=== PATIENT | female | born 1945 | race Caucasian/White ===

== ENCOUNTER 2021-03-05 12:14 | Observation (INO) | payer MEDICARE, SELFPAY ==
[2021-03-05] VITALS (14 sets, daily range): BP systolic 117–169; BP diastolic 56–86; PULSE 53–774; RESP 13–24; TEMP 36.6–37.2; O2SAT 92–98; BMI 29.4
--- NOTE | 2021-03-05 12:37 | EKG12_ITS ---
Test Reason : SYNCOPE Blood Pressure : / mmHG Vent. Rate : 061 BPM Atrial Rate : 061 BPM P-R Int : 150 ms QRS Dur : 142 ms QT Int : 426 ms P-R-T Axes : 046 109 001 degrees QTc Int : 428 ms Normal sinus rhythm Right bundle branch block Abnormal ECG Confirmed by GERI FOOTE, CHERIE ([id number]), assignment desk editor ELSY TIDWELL ([id number]) on 03/09/2021 10:27:51 AM Referred By: CLAU Confirmed By:CHERIE NEVAREZ MD
--- NOTE | 2021-03-05 12:40 | RAD_ITS ---
STUDY: X-RAY CHEST REASON FOR EXAM: Female, 75 years old. COVID . Syncope. Increased weakness and diarrhea. TECHNIQUE: Single AP portable view of the chest. COMPARISON: None. FINDINGS: EKG electrodes are seen. Mild degree of increased markings are seen in the medial aspect of the right lung base. There is no demonstrated pleural abnormality. There is borderline cardiomegaly. Normal mediastinum and mraion. Normal visualized pulmonary arteries. There is atherosclerotic tortuosity of the aortic arch and descending thoracic aorta. Normal visualized thoracic spine. Normal visualized ribs, clavicles, and shoulders. There is no demonstrated abnormality of the visualized soft tissue structures of the upper abdomen. RAD/Chest 1 View (Portable) IMPRESSION: Mild degree of increased markings at the right lung base medially. Electronically Signed: Boyd Aceves MD at 13:25 EDT , Service support ,
[2021-03-05 12:48] LABS: Absolute Lymphocyte Count 1.39 X10^3/uL (0.83-4.51); Absolute Neutrophil Count 4.1 X10^3/uL (2.0-7.7); Basophil# 0.02 X10^3/uL; Basophil% 0.3 % (0-1); Hematocrit 38.3 % (37-47); Hemoglobin 13.2 g/dL (12.0-15.0); Lymphocyte # 1.39 X10^3/ul (0.83-4.51); Lymphocyte % 21.6 % (19-41); Mean Corp Hgb Conc 34.5 g/dL (32-36); Mean Corpuscular Hgb 29.7 pg (27.0-32.0); Mean Corpuscular Volume 86.3 fL (81-99); Mean Platelet Vol. 9.9 fl (6.2-12.0); Monocyte# 0.93 X10^3/uL; Monocyte% 14.4 % (0-10); NRBC Flagged by Analyzer 0 % (0-5); Neutrophil # 4.07 X10^3/uL (2.7-7.7); Neutrophil % 63.2 % (47-70); Platelet Count 202 K/mm3 (150-450); RBC Distribution Width CV 13.3 % (11.6-14.6); RBC Distribution Width SD 41.9 fl (35.1-43.9); Red Blood Count 4.44 M/mm3 (4.2-5.4); White Blood Count 6.4 K/mm3 (4.4-11.0)
[2021-03-05 13:02] LABS: ALB/GLOB Ratio 0.8 RATIO (0.9-2.4); AST(SGOT) 37 U/L (15-37); Alanine Aminotransfer ALT/SGPT 34 U/L (13-56); Albumin, Serum 3.7 g/dL (3.2-5.0); Alkaline Phosphatase 72 U/L (45-117); Anion Gap 10 (5-15); BUN 17 mg/dL (7-18); Calcium,Total 8.5 mg/dL (8.5-10.1); Chloride 91 mmol/L (98-107); EST Glomerular Filtration Rate 57 mL/min (>60); Est Glom Filt Rate - Afr Amer 69 mL/min (>60); Estimated Creatinine Clearance 41.97 ml/min; Globulin 4.4 g/dL (2.2-4.2); Glucose 123 mg/dL (74-106); Potassium 3.5 mmol/L (3.5-5.1); Protein, Total 8.1 g/dL (6.4-8.2); Sodium Level 129 mmol/L (136-145); Troponin-I HS 10 pg/mL (3.0-54.0)
--- NOTE | 2021-03-05 14:06 | EDS_ITS ---
HPI History of Present Illness Chief Complaint: Syncope Informant: patient Narrative Narrative: Patient is a 75-year-old female who presents to the emergency department after being tested positive for Covid. This is day 10 of symptoms. She states that she has been having nausea intermittently as well as diarrhea daily. She denies any significant chest pain or shortness of breath. She has been but monitoring her home oxygen. She has had a mild intermittent cough. She denies any fevers or chills. Yesterday she had an episode where she passed out. When walking into the emergency department she again passed out. She denies having episodes of this before in the past. She denies any known history of heart or lung problems. She denies a smoking history. PFSH PFS Home Medications NK 03/05/21 [History Last Taken Unknown] Allergy/AdvReac Type Severity Reaction Status Date / Time No Known Allergies Allergy Verified 03/05/21 12:17 Social History Smoking Status: Never smoker ROS ROS ED Constitutional Constitutional ED: Denies chills or fever(s) Eyes Eyes: Denies change in vision ENT ENT ED: Denies epistaxis or rhinorrhea Cardiovascular Cardiovascular: Denies chest pain or palpitations Respiratory/Chest Respiratory/Chest: Denies dyspnea or dyspnea on exertion Gastrointestinal Gastrointestinal: Reports diarrhea, nausea and vomiting; Denies abdominal pain Musculoskeletal Musculoskeletal: Denies back pain or neck pain Integumentary Denies rash Neurologic Neurologic: Denies headache(s) or weakness EXAM Physical Exam Const Vital Signs: 03/05/21 12:15 03/05/21 12:19 03/05/21 13:24 Temperature 97.8 F 97.8 F 99 F Temperature Source Temporal Temporal Oral Pulse Rate 53 L 53 L 68 Pulse Rate [Lying] 62 Pulse Rate [Sitting] 72 Pulse Rate [Standing] 73 Respiratory Rate 21 H 21 H 17 Respiratory Effort Short of Breath Blood Pressure 154/63 H 154/63 H 117/59 L Blood Pressure [Lying] 121/63 H Blood Pressure [Sitting] 131/56 H Blood Pressure [Standing] 117/59 L Blood Pressure Mean 93 93 78 Blood Pressure Mean [Lying] 82 Blood Pressure Mean [Sitting] 81 Blood Pressure Mean [Standing] 78 Pulse Ox 93 93 93 Oxygen Delivery Method Room Air Room Air Room Air 03/05/21 14:00 03/05/21 15:13 Temperature Temperature Source Pulse Rate 69 78 Pulse Rate [Lying] Pulse Rate [Sitting] Pulse Rate [Standing] Respiratory Rate 20 H 20 H Respiratory Effort Blood Pressure 127/60 H 121/60 H Blood Pressure [Lying] Blood Pressure [Sitting] Blood Pressure [Standing] Blood Pressure Mean 82 80 Blood Pressure Mean [Lying] Blood Pressure Mean [Sitting] Blood Pressure Mean [Standing] Pulse Ox 93 94 Oxygen Delivery Method Room Air Room Air Positive well nourished and well developed General Appearance ED: well developed and NAD HEENT Reports normocephalic and head/scalp atraumatic Eyes PERRL and EOMs intact bilaterally Chest Wall inspection of chest normal Resp normal respiratory effort and clear to auscultation bilaterally Auscultation: Negative for rales, rhonchi or wheezes Cardio regular rate, regular rhythm and no murmurs GI normal to inspection, nondistended, normoactive bowel sounds and non-tender Palpation: soft; Negative for guarding or rebound tenderness present Back/Spine no CVA tenderness Extremity normal to inspection General Extremety ED: Negative for edema or tenderness General Extremity: Negative for edema Neuro Sensorium / Orientation: alert Motor Exam: strength 5/5 throughout Psych mental status grossly normal Skin no rashes or lesions noted MDM MDM MDM Narrative Medical decision making narrative: Patient presents to the ED for diarrhea, nausea. She has not been able to keep much fluids down and she is Covid positive. She had 2 episodes of syncope since yesterday. On arrival to the emergency department she is satting 93% on room air. In no respiratory distress. Will start a small bolus of IV fluids and check basic lab work. Patient's lab work showed a sodium of 129. Patient was feeling much better after fluids we attempted to ambulate the patient. She took a few steps out of bed and desaturated to 85%. She will be started on Decadron and we will admit to the hospital for further evaluation and management. She understands and is agreeable with this plan. Lab Data Labs: Laboratory Results - last 24 hr 03/05/21 03/05/21 12:20 12:20 WBC 6.4 RBC 4.44 Hgb 13.2 Hct 38.3 MCV 86.3 MCH 29.7 MCHC 34.5 RDW Std Deviation 41.9 RDW Coeff of Nic 13.3 Plt Count 202 MPV 9.9 Immature Gran % (Auto) 0.500 Neut % (Auto) 63.2 Lymph % (Auto) 21.6 [place] % (Auto) 14.4 H Eos % (Auto) 0.0 Baso % (Auto) 0.3 Absolute Neuts (auto) 4.1 Absolute Lymphs (auto) 1.39 Nucleated RBC % 0 Sodium 129 L Potassium 3.5 Chloride 91 L Carbon Dioxide 28.0 Anion Gap 10 BUN 17 Creatinine 1.00 Estim Creat Clear Calc 41.97 Est GFR (MDRD) Af Amer 69 Est GFR (MDRD) Non-Af 57 L BUN/Creatinine Ratio 17.0 Glucose 123 H Calcium 8.5 Total Bilirubin 0.60 AST 37 ALT 34 Alkaline Phosphatase 72 Troponin I High Sens 10 Total Protein 8.1 Albumin 3.7 Globulin 4.4 H Albumin/Globulin Ratio 0.8 L Radiography Diagnostic Testing: Radiology Impression Chest X-Ray 03/05/21 12:40 IMPRESSION: Mild degree of increased markings at the right lung base medially. Electronically Signed: Boyd Aceves MD at 13:25 EDT , Service support , EKG Initial EKG: Attestation: I personally reviewed and interpreted this EKG as follows: (Rate of 61 bpm and normal sinus rhythm. Prolonged QRS of 142 with right bundle branch block. Otherwise normal intervals with a normal axis. No significant ST elevations or depressions.) Discharge Plan Dx/Rx/DC Orders Clinical Impression: Pneumonia due to COVID-19 virus, Hypoxia, Syncope, Hyponatremia Disposition Disposition: Acute Care Hospital [facility]
[2021-03-05] MEDS: dexAMETHasone 10 MG/ML Vial 8 MG IV (15:21)
--- NOTE | 2021-03-05 17:45 | PCM.HP.STD ---
HPI - General General Date of Admission: 03/05/21 Date of Service: 03/05/21 Chief Complaint: Syncopal episode HPI Narrative JANEE MEDINA, is a 75 F who presents to the emergency room at [facility] with a chief complaint of having a syncopal episode at home yesterday, on the way into the ER today she had another syncopal episode. Patient tested positive for COVID-19 10 days ago, she has had loose stools and diarrhea as well as intermittent nausea. Patient denies any significant chest pain or shortness of breath. Work-up in the emergency room included a CBC that was unremarkable, patient's CHEM panel was remarkable for a sodium of 129, chloride of 91, and patient's chest x-ray showed a mild degree of increased markings at the right lung base medially. Patient's pulse ox on room air was 95%. Patient was given IV fluids and reevaluated, she was walked without oxygen and her pulse ox went down to 85% according to the emergency room physician. Patient will be placed in observation status for syncope and hyponatremia, I believe she is probably dehydrated and I will administer fluids and place her on Decadron due to her recent Covid diagnosis. She is not a candidate for remdesivir. [facility] Home Medications NK 03/05/21 [History Last Taken Unknown] Allergy/AdvReac Type Severity Reaction Status Date / Time No Known Allergies Allergy Verified 03/05/21 12:17 Social History Smoking Status: Never smoker ROS Constitutional Constitutional: Reports fatigue and malaise; Denies anorexia, change in weight, chills, fever(s), night sweats or weakness Eyes Eyes: Denies blurry vision, change in eye color, change in vision, discharge from eye(s) or eye pain ENT HEENT: Denies abnormal hearing, dysphagia, ear pain, headache(s) or hearing loss Cardiovascular Cardiovascular: Reports syncope; Denies chest pain, claudication, edema or palpitations Respiratory/Chest Respiratory/Chest: Reports cough; Denies dyspnea, hemoptysis, shortness of breath at rest or shortness of breath with exertion Gastrointestinal Gastrointestinal: Reports diarrhea and nausea; Denies abdominal pain, constipation, hematemesis, hematochezia, melena or vomiting Genitourinary Genitourinary: Denies dysuria, hematuria, urinary frequency, urinary hesitancy, urinary incontinence or urinary urgency Musculoskeletal Musculoskeletal: Denies back pain, joint pain, joint stiffness, joint swelling, myalgias or neck pain Neurologic Neurologic: Denies abnormal gait, abnormal speech, dizziness, focal weakness, headache(s), loss of vision, numbness, other visual disturbances, paresthesias, syncope or tingling Psychiatric Psychiatric: Denies anxiety, cognitive impairment, depression, irritability, mood swings or suicidal ideation Endocrine Endocrinology: Denies change in body appearance, cold intolerance, excessive sweating, heat intolerance, polydipsia or polyuria Hematologic/Lymphatic Hematologic/Lymphatic: Denies none, anemia, easy bleeding, easy bruising or lymphadenopathy Allergic/Immunologic Allergic/Immunologic: Denies rhinitis, urticaria, eczemia or asthma Vital Signs Vital Signs Vital Signs: 03/05/21 12:15 03/05/21 12:19 03/05/21 13:24 Temperature 97.8 F 97.8 F 99 F Temperature Source Temporal Temporal Oral Pulse Rate 53 L 53 L 68 Pulse Rate [Lying] 62 Pulse Rate [Sitting] 72 Pulse Rate [Standing] 73 Respiratory Rate 21 H 21 H 17 Respiratory Effort Short of Breath Blood Pressure 154/63 H 154/63 H 117/59 L Blood Pressure [Lying] 121/63 H Blood Pressure [Sitting] 131/56 H Blood Pressure [Standing] 117/59 L Blood Pressure Mean 93 93 78 Blood Pressure Mean [Lying] 82 Blood Pressure Mean [Sitting] 81 Blood Pressure Mean [Standing] 78 Pulse Ox 93 93 93 Oxygen Delivery Method Room Air Room Air Room Air 03/05/21 14:00 03/05/21 15:13 03/05/21 15:20 Temperature 98.5 F Temperature Source Oral Pulse Rate 69 78 71 Pulse Rate [Lying] Pulse Rate [Sitting] Pulse Rate [Standing] Respiratory Rate 20 H 20 H 21 H Respiratory Effort Blood Pressure 127/60 H 121/60 H 143/68 H Blood Pressure [Lying] Blood Pressure [Sitting] Blood Pressure [Standing] Blood Pressure Mean 82 80 93 Blood Pressure Mean [Lying] Blood Pressure Mean [Sitting] Blood Pressure Mean [Standing] Pulse Ox 93 94 97 Oxygen Delivery Method Room Air Room Air Room Air 03/05/21 15:22 03/05/21 15:28 03/05/21 16:26 Temperature 98.5 F 98.5 F Temperature Source Oral Oral Pulse Rate 72 774 H 71 Pulse Rate [Lying] Pulse Rate [Sitting] Pulse Rate [Standing] Respiratory Rate 24 H 13 16 Respiratory Effort Blood Pressure 143/68 H 143/86 H 135/65 H Blood Pressure [Lying] Blood Pressure [Sitting] Blood Pressure [Standing] Blood Pressure Mean 93 105 88 Blood Pressure Mean [Lying] Blood Pressure Mean [Sitting] Blood Pressure Mean [Standing] Pulse Ox 94 96 92 Oxygen Delivery Method Room Air Room Air Room Air 03/05/21 17:02 Temperature Temperature Source Pulse Rate Pulse Rate [Lying] Pulse Rate [Sitting] Pulse Rate [Standing] Respiratory Rate Respiratory Effort Blood Pressure 124/61 H Blood Pressure [Lying] Blood Pressure [Sitting] Blood Pressure [Standing] Blood Pressure Mean 82 Blood Pressure Mean [Lying] Blood Pressure Mean [Sitting] Blood Pressure Mean [Standing] Pulse Ox Oxygen Delivery Method Weight Weight: 77.7 kg Body Mass Index (BMI) 29.4 Physical Exam Const alert, oriented x3, no apparent distress and healthy appearing General Appearance: cooperative, well kempt and well developed Orientation / Consciousness: awake, oriented to person, oriented to place and oriented to time HEENT normocephalic, head/scalp atraumatic, hearing grossly normal bilaterally and moist oral mucous membranes Eyes PERRL, EOMs intact bilaterally and conjunctivae normal Neck nuchal rigidity, supple, no JVD, thyroid normal and no carotid bruits General: trachea midline Resp normal respiratory effort, no retractions, no use of accessory muscles and clear to auscultation bilaterally Auscultation: Negative for rales, rhonchi or wheezes Cardio regular rate, regular rhythm, S1 normal heart sound, S2 normal heart sound, no murmurs, no rub and no gallops GI normal to inspection, nondistended, normoactive bowel sounds, soft to palpation, non-tender and non-distended Extremity normal to inspection and no clubbing, cyanosis or edema Skin no rashes or lesions noted, no wounds, skin turgor normal and no jaundice General Skin Exam: no breakdown Neuro oriented x3, CN's II-XII intact bilaterally, no focal motor deficits and no sensory deficits noted Sensorium / Orientation: awake and alert Speech: speech normal Psych thought process normal and affect normal Results Lab / Micro Data Result Diagrams: 03/05/21 12:20 03/05/21 12:20 Labs: Laboratory Results - last 24 hr 03/05/21 12:20: WBC 6.4, RBC 4.44, Hgb 13.2, Hct 38.3, MCV 86.3, MCH 29.7, MCHC 34.5, RDW Std Deviation 41.9, RDW Coeff of Nic 13.3, Plt Count 202, MPV 9.9, Immature Gran % (Auto) 0.500, Neut % (Auto) 63.2, Lymph % (Auto) 21.6, [place] % (Auto) 14.4 H, Eos % (Auto) 0.0, Baso % (Auto) 0.3, Absolute Neuts (auto) 4.1, Absolute Lymphs (auto) 1.39, Nucleated RBC % 0 03/05/21 12:20: Sodium 129 L, Potassium 3.5, Chloride 91 L, Carbon Dioxide 28.0, Anion Gap 10, BUN 17, Creatinine 1.00, Estim Creat Clear Calc 41.97, Est GFR (MDRD) Af Amer 69, Est GFR (MDRD) Non-Af 57 L, BUN/Creatinine Ratio 17.0, Glucose 123 H, Calcium 8.5, Total Bilirubin 0.60, AST 37, ALT 34, Alkaline Phosphatase 72, Troponin I High Sens 10, Total Protein 8.1, Albumin 3.7, Globulin 4.4 H, Albumin/Globulin Ratio 0.8 L Radiology Impression Chest X-Ray 03/05/21 12:40 IMPRESSION: Mild degree of increased markings at the right lung base medially. Electronically Signed: Boyd Aceves MD at 13:25 EDT , Service support , Assessment & Plan Assessment/Plan (1) Syncope: PLAN: 1. Syncope-etiology unclear at this time, it may be that the patient is dehydrated, patient will be placed into observation status on PCU, she will be given IV fluids and monitored on telemetry. I do not believe the patient needs an echocardiogram. #2 [id number] will be placed on dexamethasone, she is not a candidate for remdesivir #3 hypoxia secondary to #2-patient is only hypoxic on activity, she will need to be checked tomorrow prior to discharge to assess for outpatient supplemental oxygen need. #4 hyponatremia-BMP will be repeated in the morning, patient will be placed on normal saline Charges/Coding Visit Charges OBSV E&M: 55890 Initial observation care L3
[2021-03-05] MEDS: 0.9% Normal Saline 1,000 ML 100 ML IV (17:48)
--- NOTE | 2021-03-05 18:15 | NURSING ---
Patients door closed, but not negative pressure
[2021-03-05] MEDS: Heparin Injection (Vial) 5,000 UNIT/ML VIAL 5000 UNIT SC (21:36)
--- NOTE | 2021-03-05 22:34 | PCS.PANDOC ---
PANDEMIC DOCUMENTATION INITIATED: Date: 03/05/2021 Time: 1255
[2021-03-06] VITALS (8 sets, daily range): BP systolic 143–175; BP diastolic 67–75; PULSE 62–84; RESP 16–18; TEMP 36.4–37; O2SAT 87–95
[2021-03-06] MEDS: 0.9% Normal Saline 1,000 ML 100 ML IV (03:12)
--- NOTE | 2021-03-06 07:22 | ECHOD_ITS ---
Reason For Study: SYNCOPE/NEAR SYNCOPE Procedure This was a 2D Doppler, Color Flow transthoracic echocardiogram. Exam performed portable in patient room. The exam was abbreviated due to the COVID 19 protocol. Left Ventricle Normal LV size. Left ventricular systolic function is normal. The estimated ejection fraction is 60 %. No regional wall motion abnormalities noted. Right Ventricle Normal RV size. Normal systolic function. Atria Normal left atrium. Normal right atrium. Mitral Valve Normal mitral valve. Tricuspid Valve Normal tricuspid valve. Aortic Valve Normal aortic valve. Trisinus/trileaflet aortic valve. Pulmonic Valve Normal pulmonic valve. Great Vessels Normal aortic root. The pulmonary artery is normal size. Normal inferior vena cava. Pericardium/Pleural No pericardial effusion. MMode/2D Measurements & Calculations LVIDd: 4.7 cm IVSd: 0.88 cm LAV(MOD-bp): 38.8 ml LVIDs: 3.1 cm LVPWd: 0.90 cm LAV(MOD-bp) Indexed: 21.2 ml/m2 FS: 33.9 % LAV(MOD-sp2): 35.7 ml LAV(MOD-sp4): 37.1 ml SV(MOD-sp4): 60.6 ml SV(sp4-el): 63.7 ml LVAd ap4: 28.8 cm2 LVLd ap4: 7.4 cm EDV(MOD-sp4): 92.5 ml EDV(sp4-el): 95.1 ml LVAs ap4: 15.6 cm2 LVLs ap4: 6.5 cm ESV(MOD-sp4): 31.9 ml ESV(sp4-el): 31.4 ml EF(MOD-sp4): 65.5 % EF(sp4-el): 66.9 % LA A4 area: 16.0 cm2 LA dimension(2D): 3.0 cm RA A4 area: 13.5 cm2 ECHO/Echo Complete Interpretation Summary Normal LV size. Left ventricular systolic function is normal. The estimated ejection fraction is 60 %. Structurally normal valves. Ordering Physician: Nathaly Rea Performed By: Priscilla Watson RDCS
[2021-03-06 08:08] LABS: Anion Gap 7 (5-15); BUN 11 mg/dL (7-18); BUN/Creat Ratio 17.3 RATIO (10-20); Calcium,Total 8.1 mg/dL (8.5-10.1); Chloride 103 mmol/L (98-107); Creatinine, Serum 0.64 mg/dL (0.55-1.02); EST Glomerular Filtration Rate 97 mL/min (>60); Est Glom Filt Rate - Afr Amer 117 mL/min (>60); Estimated Creatinine Clearance 41.97 ml/min; Glucose 119 mg/dL (74-106); Potassium 3.7 mmol/L (3.5-5.1); Sodium Level 138 mmol/L (136-145)
[2021-03-06] MEDS: dexAMETHasone 4 MG Tablet 6 MG PO (09:23)
[2021-03-06] MEDS: Heparin Injection (Vial) 5,000 UNIT/ML VIAL 5000 UNIT SC (09:23)
--- NOTE | 2021-03-06 11:47 | CASEMGMT ---
Per Ivania BUTLER, pt qualifies for 2L nc with ambulation. Pt states no preference for DME company and referral faxed to [facility] [place]. Pt states they do have electricity at home that she can use for the concentrator. Pt states no further concerns/needs with going home. Call to [facility] [place] to notify of referral and pt discharge, voices understanding. Britta BUTLER CM
--- NOTE | 2021-03-06 14:35 | PCM.DC.SUM ---
Providers Date of Admission: 03/05/21 Primary Care Physician: No Primary Care Phys Reason For Visit: COVID, HYPOXIC Diagnosis Discharge Diagnosis (1) Syncope: Status: Acute Code(s): R55 - Syncope and collapse Medications at Discharge Home Medications dexamethasone 6 mg PO DAILY #9 tab 03/06/21 Hospital Course Operations None Procedures 2-D Echocardiogram Summary of Care Provided Minutes Spent on Discharge: 25 Hospital Course: Mrs. Corrigan is a 75-year-old white female presented to the emergency department [facility] on 03/05/2021 with a chief complaint of having a syncopal episode yesterday at home. On the her way to the ED on the day of admission she had another syncopal episode. She reports she tested positive for COVID-19 10 days prior to presenting. She has had diarrhea and loose stools with intermittent nausea and decreased p.o. intake since her diagnosis. She has had no chest pain or shortness of breath prior to admission. On admission her vital signs were relatively stable other than some mild hypoxia with an oxygen saturation of 85% with ambulation. Her BMP showed a sodium of 129 and a chloride of ninety-one and her chest x-ray showed mild increased interstitial markings bilaterally. Orthostatic vitals were positive in the emergency department. She was placed on IV fluids and Decadron on admission. She was not a candidate for remdesivir secondary to her date of diagnosis. On the a.m. of 03/06/2021 she remained stable. Her hyponatremia and hypochloremia had resolved. Her orthostatic vitals normalized. An echocardiogram was performed given her syncopal episodes and her EF was 60% with a normal LV and structurally normal valves. She was evaluated for home oxygen needs and found to need no oxygen at rest but 3 L with exertion. She was discharged home in stable condition with home oxygen and instructed to quarantine herself until 03/13/2021 and then follow-up with her PCP to be reassessed for oxygen requirements with exertion. She was discharged with a prescription for Decadron given her Covid related hypoxia. Discharge diagnoses: Orthostatic hypotension-resolved Syncope Dehydration COVID-19 Acute hypoxic respiratory insufficiency Hyponatremia-resolved Physical Exam Const alert, oriented x3 and no apparent distress Constitutional Narrative: Elderly obese white female sitting up in a chair at the bedside, appears comfortable, nontoxic, wearing 2 L of oxygen. General Appearance: cooperative, comfortable, well kempt and well developed Nutritional Appearance: obese HEENT normocephalic and head/scalp atraumatic Resp normal respiratory effort, no retractions, no use of accessory muscles and clear to auscultation bilaterally Auscultation: Negative for crackles, rales, rhonchi or wheezes Cardio regular rate, regular rhythm, S1 normal heart sound, S2 normal heart sound, no murmurs, no rub, no gallops, no clicks and no JVD GI normal to inspection, nondistended, normoactive bowel sounds, soft to palpation, non-tender and non-distended Extremity normal to inspection and no clubbing, cyanosis or edema Extremity Narrative: Pedal pulses are 2+ Skin no rashes or lesions noted, no wounds, skin turgor normal and no jaundice Neuro oriented x3, CN's II-XII intact bilaterally, moves all extremities and no focal motor deficits Sensorium / Orientation: awake and alert Speech: speech normal Psych affect normal Medical Records Data Medical Nutrition Assessment Dietitian: Malnutrition Criteria Met Start: 03/06/21 12:26 Freq: Status: Active Protocol: Document 03/06/21 12:26 [facility] (Rec: 03/06/21 12:27 [facility] [id number]) Nutrition Malnutrition Evidence of Malnutrition Exists Yes Malnutrition (moderate): Acute Illness/Injury Evidenced By Suboptimal Energy Intake ( Moderate),Weight Loss ( Moderate) Clinical Problem Acute Disease or Injury Related Malnutrition Etiology related to Covid symptoms x 10 days Signs/Symptoms as evidenced by <50% po intake x >5 days and 1.7% wt loss x 10 days Status Active Problem Recommendation Dietitian Recommendations/Changes Will continue liberal Regular diet Will provide ensure enlive w/ meals instead of medpass for nsg convenience. Weight / BMI Weight Weight: 77.7 kg Body Mass Index (BMI) 29.4 ABG / Lab / Microbiology Data Result Diagrams: 03/05/21 12:20 03/06/21 07:25 Laboratory: Laboratory Results - last 24 hr 03/06/21 07:25: Sodium 138, Potassium 3.7, Chloride 103, Carbon Dioxide 28.0, Anion Gap 7, BUN 11, Creatinine 0.64, Estim Creat Clear Calc 41.97, Est GFR (MDRD) Af Amer 117, Est GFR (MDRD) Non-Af 97, BUN/Creatinine Ratio 17.3, Glucose 119 H, Calcium 8.1 L Radiography Diagnostic Testing: Radiology Impression Echocardiogram 03/06/21 07:22 Interpretation Summary Normal LV size. Left ventricular systolic function is normal. The estimated ejection fraction is 60 %. Structurally normal valves. Ordering Physician: Nathaly Rea Performed By: Priscilla Watson RDCS D/C Instructions Discharge Diet: No restrictions Meaningful Use Info Meaningful Use Diagnoses (Choose all that apply): None applicable Discharge Plan Admission Admit Date/Time: 03/05/21 16:20 Primary Reason for Your Visit: Syncope/Covid-19 Attending Provider: Nathaly Rea Primary Care Provider: Deborah Kee,Jaycee Primary Instructions Additional Instructions / Restrictions: 1. Follow-up with your PCP once you are out of quarantine which will be on 03/13/2021 to be reassessed for oxygen needs 2. Please quarantine until the time noted above to prevent the spread of COVID-19 Discharge Orders/Prescriptions Prescriptions: New dexamethasone 4 mg Tablet 6 mg PO DAILY Qty: 9 RF: 0 Referrals / Follow Up: Care Physician,No Primary [Primary Care Provider] - Disposition Disposition (needs filled in before D/C Order can be placed): Home, Self Care Charges/Coding Visit Charges Inpatient E&M: 79862 Disch Hosp
--- NOTE | 2021-03-06 15:10 | PHA.DC.MC ---
Pharmacy Service has performed discharge medication reconciliation and counseling for this patient. Patient counseled via telephone due to COVID precautions. 1. DEXAMETHASONE 6MG PO DAILY X 6 DAYS The patient's discharge medication list was reviewed for discrepancies and discrepancies were resolved. Home Medications dexamethasone 6 mg PO DAILY #9 tab 03/06/21 The patient was counseled on the following discharge medications and changes in medications for homegoing were reviewed. The Reason for Use, instructions for use, and potential side effects were reviewed for all new medications. The patient's questions regarding all of their medications were answered. The patient was able to verbally demonstrate an understanding of their discharge medications.
--- NOTE | 2021-03-09 15:17 | CASEMGMT ---
[facility] Discharge Follow-Up Phone Call. Discharge Date: 03/06/21 Adm Dx: syncope, COVID Call to pt to inquire about how she has been doing since being discharged from the hospital. She states, I'm doing alright. My breathing is better. She states her pulse ox has been mostly 93% today. She states she has been wearing her oxygen and has been taking the Decadron as prescribed. She denies having any questions or concerns. Man AGUILERA RN CM
== END 2021-03-06 14:37 | disposition home or self-care (01) ==
LOC: ED 15:14 → PCU 15:58
PROVIDERS: Admitting Provider Internal Medicine; Emergency Provider Emergency Medicine; Visit Provider Internal Medicine
DX: U07.1 COVID-19 (principal); J12.82 Pneumonia due to coronavirus disease 2019; R55 Syncope and collapse; R09.02 Hypoxemia; E87.1 Hypo-osmolality and hyponatremia; I45.10 Unspecified right bundle-branch block; E86.0 Dehydration
CPT/HCPCS: 36415; 71045; 80048; 80053; 84484; 85025; 93005; 93306; 96361; 96372; 96374; 97802; 99218; 99251; 99285; J7030; J7040; A4216; G0378; G0463; J3490